=== PATIENT | female | born 2000 | race Caucasian/White ===

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

== ENCOUNTER 2022-01-21 21:12 | Emergency (ER) | payer OTHER, SELFPAY ==
--- NOTE | ~2022-01-21 | XR_ITS ---
EXAMINATION: XR KNEE, RIGHT CLINICAL INFORMATION: Pain COMPARISON: None TECHNIQUE: Four views of the right knee. FINDINGS: No fracture or subluxation. Compartmental joint spaces are maintained. No joint effusion. The soft tissues are unremarkable. XR/XR knee RT 3V IMPRESSION: Normal right knee.
[2022-01-21 22:48] VITALS: BP 145/71; PULSE 89; RESP 20; TEMP 36.4; O2SAT 98; BMI 36.6
--- NOTE | 2022-01-21 23:43 | ED.LOWEXIN ---
HPI - Extremity Injury (Lower) General Chief Complaint: Extremity Injury, Lower Stated Complaint: Right knee pain, hurts to walk Time Seen by Provider: 01/22/22 00:09 Source: patient Mode of arrival: ambulatory Limitations: no limitations History of Present Illness HPI Narrative: 21-year-old female presents with right knee pain after playing Frisbee. States that she landed wrong while landing after jumping to catch a frisbee. She was unable to bear weight because of pain, took ice and Motrin with moderate effect. MD complaint: knee injury Onset (ago): hour(s) (within the hour of arrival) Type of Injury: hyperextension Place: street/outdoors Severity: moderate Severity scale (1-10): 7 Relieving factors: NSAID and cold therapy Exacerbating factors: weight bearing, movement and palpation Context: jumping Associated symptoms: able to partially bear weight Other symptoms: none Treatments prior to arrival: cold therapy and NSAIDS Related Data Previous Rx's Medication Instructions Recorded ibuprofen 600 mg tablet 600 mg PO Q6H PRN #60 tab 01/21/22 Allergies Allergy/AdvReac Type Severity Reaction Status Date / Time No Known Allergies Allergy Verified 01/21/22 22:53 Review of Systems Review of Systems: Constitutional: No Fever, No Chills ENT/Mouth: No Ear Pain, No Hoarseness, No sore throat Eyes: No Eye Pain, No Swelling, No Redness, No Foreign Body Cardiovascular: No Chest Pain, No SOB Respiratory: No Cough, No Dyspnea Gastrointestinal: No Nausea, No Vomiting, No Diarrhea, No abdominal Pain Genitourinary: No Dysuria, No Hematuria Musculoskeletal: positive right knee pain, No Myalgias, No Joint Swelling Skin: No Skin lacerations, No rash Neuro: No Weakness, No Numbness, No Paresthesias, No Loss of Consciousness, No Dizziness, No Headache Psych: No Anxiety/Panic, No Depression Heme/Lymph: no easy bruising, no Lymphadenopathy Endocrine: No Polyuria, No Polydipsia Yes all other systems are reviewed and are negative [facility] Past Medical History Attestation statement: The following information was validated with the patient. Source: old records reviewed Social History Social History Advance Directives: No Advance Directives Information Provided: No Physical Exam Vital Signs: Vital Signs: Last Vital Signs Temp 97.5 F 01/21/22 22:48 Pulse 89 01/21/22 22:48 Resp 20 01/21/22 22:48 BP 145/71 H 01/21/22 22:48 Pulse Ox 98 01/21/22 22:48 BMI result Body Mass Index 36.6 Appearance: Alert. Oriented X3. No acute distress. Eyes: Pupils equal, round and reactive to light. ENT: Pharynx normal. Neck: Normal inspection. Neck supple. CVS: Normal heart rate and rhythm. Pulses normal. Respiratory: No respiratory distress. Breath sounds normal. Abdomen: Soft and nontender. Skin: Skin warm and dry. Normal skin color. Normal skin turgor. Extremities: No lower extremity edema. No bruising or swelling noted to the right knee. Full range of motion, negative anterior posterior drawer. Negative varus and valgus. No indication of tendon laxity. Does have pain to palpation to the popliteal. Brisk capillary refill in equal pulses. Patient is able to ambulate and pull full weight on the extremity at this time. Neuro: No motor deficit. No sensory deficit. Cranial nerves 2-12 intact. Course Course Course Narrative: 21-year-old female presents with right knee pain after playing Frisbee. X-rays were completed while she was in the emergency department waiting room, negative for fracture dislocation or effusion. Patient does have full range of motion, no indication of tendon injury at this time. Will place patient in K[place]hawn wrap and have her follow-up with primary care physician and/or orthopedics if pain persists over the next week. Supportive measures discussed. Patient verbalized understanding of and agrees to plan of care to discharge home. Verbalized understanding of signs and symptoms indicating need for emergent intervention MDM - Extremity Injury (Lower) Differential Diagnosis Differential diagnosis: Likely acute internal derangement of knee Medical Records Attestation: I reviewed the patient's medical records. Imaging Data Right knee x-ray: Attestation: I personally reviewed and interpreted this imaging study as follows: Radiologist's impression: EXAMINATION: XR KNEE, RIGHT? CLINICAL INFORMATION: Pain? COMPARISON: None? TECHNIQUE: Four views of the right knee. FINDINGS: No fracture or subluxation. Compartmental joint spaces are maintained. No joint effusion. The soft tissues are unremarkable.? XR/XR knee RT 3V IMPRESSION: Normal right knee. ? Discharge Plan Discharge Clinical Impression: Acute internal derangement of knee Patient Disposition: Home, Self-Care Instructions: Knee Sprain (ED), Crutch Instructions (ED), Knee Pain (ED), R.I.C.E. Treatment (ED) Additional Instructions: You were evaluated for injuries to the right knee while playing Frisbee. X-rays are negative for dislocation, fracture, and effusion. This could possibly be a sprain or a tendon ligament injury. If pain persists and does not improve in the 3 days follow-up with your primary care physician and or orthopedics. Please use crutches as needed for ambulation. Use Keshawn wrap to help reduce pain and swelling. Use Motrin 600 mg every 6 hours as needed for pain. Rest ice and elevate. Thank you for choosing this emergency department for evaluation. Please follow-up with primary care physician as needed. Return to the emergency department for any new, concerning, or worsening symptoms. Prescriptions: New ibuprofen 600 mg tablet 600 mg PO Q6H PRN (Reason: pain) Qty: 60 0RF Stand Alone Forms: Work/School Release Interventions: ED Discharge Assessment Last Done: 01/22/22 00:45 Discharge Date/Time: 01/22/22 00:46
== END 2022-01-22 00:46 | disposition home or self-care (01) ==
PROVIDERS: Emergency Provider Internal Medicine
DX: M23.91 Unspecified internal derangement of right knee (principal)
CPT/HCPCS: 73562; 99282; 99283

== ENCOUNTER 2024-08-02 22:47 | Emergency (ER) | payer MEDICAID, SELFPAY ==
--- NOTE | ~2024-08-02 | XR_ITS ---
EXAMINATION: XR CHEST CLINICAL INFORMATION: cough, fevers COMPARISON: None available. TECHNIQUE: 2 views of the chest were obtained. FINDINGS: The cardiomediastinal silhouette is normal. There is a right middle lobe infiltrate. The left lung is clear. There are no significant pleural effusions. The bony structures and the soft tissues are unremarkable. XR/XR chest 2V IMPRESSION: Right middle lobe infiltrate consistent with pneumonia. Electronically signed by: Aden Baker MD 08/02/2024 11:47 PM EST
[2024-08-02 22:48] VITALS: BP 137/82; PULSE 115; RESP 18; TEMP 37.2; O2SAT 95; BMI 38.6
[2024-08-02 23:06] LABS: MANUAL DIFF FLAG NO
[2024-08-02 23:07] LABS: Basophils Absolute Auto 0.1 X10*3/uL (0.0-0.2); Basophils Percent Auto 0.6 % (0-2); Eosinophils Absolute Auto 0.1 X10*3/uL (0.0-0.4); Eosinophils Percent Auto 0.8 % (0-4); Hematocrit 39.8 % (37.0-47.0); Imm Gran Abs Auto 0.06 X10*3/uL (0.00-0.03); Imm Gran Pct Auto 0.5 % (0.0-0.4); Lymphocytes Absolute Auto 2.1 X10*3/uL (1.2-4.9); Lymphocytes Percent Auto 17.7 % (20-40); Mean Corpuscular HGB Conc 35.2 g/dl (31.0-35.0); Mean Corpuscular Hemoglobin 30.5 pg (27.0-33.0); Mean Corpuscular Volume 86.7 fL (80.0-98.0); Mean Platelet Volume 9.1 fL (9.4-12.3); Monocytes Absolute Auto 0.8 X10*3/uL (0.1-1.2); Monocytes Percent Auto 6.9 % (2-11); Neutrophils Absolute Auto 8.8 x10*3/uL (2.0-8.3); Neutrophils Percent Auto 73.5 % (45-73); Platelet Count 333 X10*3/uL (160-400); Red Blood Count 4.59 X10*6/uL (4.20-5.50); Red Cell Distribution Width 11.9 % (11.0-16.0)
[2024-08-02 23:19] LABS: Anion Gap 14 (12-20); Blood Urea Nitrogen 7 mg/dL (9-16); Calcium 9.4 mg/dL (8.4-10.2); Carbon Dioxide 21 mmol/L (22-29); Chloride 106 mmol/L (96-108); Creatinine Clr Calc Pharmacy 143.3; Estimated Glomerular Filt Rate > 60; Glucose Random 146 mg/dL (60-115); Potassium 3.8 mmol/L (3.3-5.1); Sodium 137 mmol/L (135-145)
[2024-08-02 23:44] LABS: Influenza A PCR NEGATIVE (Negative); Influenza B PCR NEGATIVE (Negative); Resp Syncy Virus RNA Qual PCR NEGATIVE (Negative); SARS COV2 PCR INHOUSE NEGATIVE (Negative)
[2024-08-03 01:20] VITALS: BP 129/68; PULSE 95; RESP 16; O2SAT 100
[2024-08-03 01:47] VITALS: TEMP 37.2
--- NOTE | 2024-08-03 02:32 | ED.URI ---
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 Related Data Previous Rx's ?Medication ?Instructions ?Recorded ibuprofen 600 mg tablet 600 mg PO Q6H PRN pain #60 tabs 01/21/22 azithromycin 250 mg tablet See Rx Instructions PO .COMPLEX #6 08/03/24 (Zithromax Z-Jorge) tabs cefuroxime axetil 500 mg tablet 500 mg PO BID 10 days #20 tabs 08/03/24 Allergies Allergy/AdvReac Type Severity Reaction Status Date / Time pear Allergy Dizziness Verified 08/02/24 22:52 Review of Systems Review of Systems: Yes all other systems are reviewed and are negative PMFSH Social History Social History Advance Directives: No Advance Directives Information Provided: Yes Physical Exam Vital Signs: Vital Signs: Last Vital Signs Temp 98.5 F 08/03/24 03:29 Pulse 99 08/03/24 03:29 Resp 16 08/03/24 03:29 BP 132/71 08/03/24 03:29 Pulse Ox 97 08/03/24 03:29 O2 Del Method Room Air 08/03/24 03:29 BMI result Body Mass Index 38.6 Appearance: Alert. Oriented X3. No acute distress. ENT: Pharynx normal. Oral Mucosa moist Neck: Normal inspection. Neck supple. CVS: Normal heart rate and rhythm. Pulses normal. Respiratory: No respiratory distress. Equal air entry bilateral, no wheezing occasional crackles on the right side Skin: Skin warm and dry. Normal skin color. Normal skin turgor. Extremities: No lower extremity edema. Neuro: Oriented X 3. Medications Administered Discontinued Medications Generic Name Dose Route Start Last Admin Trade Name Freq PRN Reason Stop Dose Admin Azithromycin 500 mg 08/03/24 02:32 08/03/24 02:44 Azithromycin 500 Mg Tablet PO 08/03/24 02:33 500 mg ONCE ONE Administration Cefuroxime Axetil 500 mg 08/03/24 02:32 08/03/24 02:44 Cefuroxime Axetil 500 Mg Tablet PO 08/03/24 02:33 500 mg ONCE ONE Administration Medical Decision Making Medical Decision Making [facility] Narrative: Patient with right middle lobe pneumonia will prescribe Ceftin and Zithromax as dual treatment Lab Data [facility] Lab Attestation statement: I reviewed the patient's lab results. 08/02/24 23:02 08/02/24 23:02 Labs: Lab Results 08/02/24 Range/Units 23:02 WBC 12.0 H (4.8-10.8) X10*3/uL RBC 4.59 (4.20-5.50) X10*6/uL Hgb 14.0 (12.0-16.0) g/dl Hct 39.8 (37.0-47.0) % MCV 86.7 (80.0-98.0) fL MCH 30.5 (27.0-33.0) pg MCHC 35.2 H (31.0-35.0) g/dl RDW 11.9 (11.0-16.0) % Plt Count 333 (160-400) X10*3/uL MPV 9.1 L (9.4-12.3) fL Immature Gran % (Auto) 0.5 H (0.0-0.4) % Neut % (Auto) 73.5 H (45-73) % Lymph % (Auto) 17.7 L (20-40) % [place] % (Auto) 6.9 (2-11) % Eos % (Auto) 0.8 (0-4) % Baso % (Auto) 0.6 (0-2) % Lymph # (Auto) 2.1 (1.2-4.9) X10*3/uL [place] # (Auto) 0.8 (0.1-1.2) X10*3/uL Eos # (Auto) 0.1 (0.0-0.4) X10*3/uL Baso # (Auto) 0.1 (0.0-0.2) X10*3/uL Abs Immat Gran (auto) 0.06 H (0.00-0.03) X10*3/uL Absolute Neuts (auto) 8.8 H (2.0-8.3) x10*3/uL Absolute Nucleated RBC 0.000 (0.0-0.012) X10*3/uL Nucleated RBC % (auto) 0.0 (0.0-0.2) /100WBC Sodium 137 (135-145) mmol/L Potassium 3.8 (3.3-5.1) mmol/L Chloride 106 (96-108) mmol/L Carbon Dioxide 21 L (22-29) mmol/L Anion Gap 14 (12-20) BUN 7 L (9-16) mg/dL Creatinine 0.69 (0.5-1.4) mg/dL Estim Creat Clear Calc 143.3 Estimated GFR > 60 Random Glucose 146 H (60-115) mg/dL Calcium 9.4 (8.4-10.2) mg/dL Influenza Type A (PCR) NEGATIVE (Negative) Influenza Type B (PCR) NEGATIVE (Negative) RSV RNA Qual (PCR) NEGATIVE (Negative) SARS-CoV-2 RNA (RT-PCR) NEGATIVE (Negative) Independent Interpretation I performed an independent interpretation of an: Plain X-Ray Interpretation: Right middle lobe pneumonia Discharge Plan Discharge Clinical Impression: Pneumonia Patient Disposition: Home, Self-Care Instructions: Community Acquired Pneumonia (ED) Additional Instructions: Take antibiotic as prescribed Tylenol/Motrin for fever You have pneumonia in the right middle lobe Follow with your PCP , report to ER if not better Prescriptions: New cefuroxime axetil 500 mg tablet 500 mg PO BID 10 Days Qty: 20 0RF azithromycin [Zithromax Z-Jorge] 250 mg tablet See Rx Instructions .ROUTE .COMPLEX Qty: 6 0RF Rx Instructions: For 250 mg dose pack: take 500 mg today (day 1), then 250 mg for 4 days (days 2-5) No Action ibuprofen 600 mg tablet 600 mg PO Q6H PRN (Reason: pain) Qty: 60 0RF Print Language: Sinhala
[2024-08-03] MEDS: cefuroxime axetiL 500 MG TABLET PO (02:44)
[2024-08-03] MEDS: Azithromycin 500 MG TABLET PO (02:44)
[2024-08-03 03:29] VITALS: BP 132/71; PULSE 99; RESP 16; TEMP 36.9; O2SAT 97
[2024-08-03 03:58] VITALS: BP 132/71; PULSE 99; RESP 16; TEMP 36.9; O2SAT 97
== END 2024-08-03 03:59 | disposition home or self-care (01) ==
PROVIDERS: Emergency Provider Internal Medicine
DX: J18.9 Pneumonia, unspecified organism (principal); Z03.818 Encounter for observation for suspected exposure to other biological agents ruled out; R05.9 Cough, unspecified
CPT/HCPCS: 0241U; 71046; 80048; 85025; 99283